=== PATIENT | male | born 1980 | race American Indian/Alaskan Native ===

== ENCOUNTER 2017-01-20 15:22 | Emergency (ER) | payer OTHER ==
[2017-01-20 15:42] VITALS: BP 147/91
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
== END 2017-01-20 18:29 | disposition home or self-care (01) ==
LOC: ED 15:22
DX: S39.012A Strain of muscle, fascia and tendon of lower back, initial encounter (principal); V89.2XXA Person injured in unspecified motor-vehicle accident, traffic, initial encounter; Y93.9 Activity, unspecified; Y92.9 Unspecified place or not applicable; Y99.9 Unspecified external cause status
CPT/HCPCS: 72040; 72100; 99283

== ENCOUNTER 2019-04-25 11:22 | Emergency (ER) | payer OTHER ==
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
[2019-04-25] MEDS ORDERED: CLEOCIN PO ONE (13:04)
[2019-04-25] MEDS ORDERED: NORCO 5/325 PO ONE (13:04)
[2019-04-25] MEDS ORDERED: XYLOCAINE 1% MPF 5 mL INFILTRATI ONE ×2 (14:26→15:26)
[2019-04-25 16:02] VITALS: BP 145/76
== END 2019-04-25 16:33 | disposition home or self-care (01) ==
LOC: ED 11:22
DX: L60.0 Ingrowing nail (principal); G89.29 Other chronic pain; I10 Essential (primary) hypertension; Z79.899 Other long term (current) drug therapy

== ENCOUNTER 2021-04-23 23:27 | Emergency (ER) | payer SELFPAY | END 2021-04-24 10:50 | disposition left against medical advice (07) | LOC: ED 23:27 | DX: R23.2 Flushing (principal); Z53.21 Procedure and treatment not carried out due to patient leaving prior to being seen by health care provider ==